=== PATIENT | male | born 1945 ===

== ENCOUNTER 2017-12-22 20:32 | Emergency (ER) | payer OTHER, MEDICARE, MEDICAID ==
[2017-12-22 20:32] VITALS: BMI 29.9
[2017-12-22 20:36] VITALS: BP 165/93; PULSE 88; RESP 16; TEMP 98.7; O2SAT 96
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
--- NOTE | 2017-12-23 13:41 | RAD ---
PROCEDURE: Left Knee Radiographs. HISTORY: Pain. COMPARISON: None. FINDINGS: BONES: Normal. No fracture. JOINTS: Normal. No osteoarthritis. JOINT EFFUSION: Trace effusion noted common nonspecific. OTHER FINDINGS: None. IMPRESSION: Unremarkable examination.
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
== END 2017-12-23 00:28 | disposition home or self-care (01) ==
LOC: H.ER 20:32
DX: S09.90XA Unspecified injury of head, initial encounter (principal); S89.92XA Unspecified injury of left lower leg, initial encounter; T07.XXXA Unspecified multiple injuries, initial encounter; V03.10XA Pedestrian on foot injured in collision with car, pick-up truck or van in traffic accident, initial encounter; Y92.410 Unspecified street and highway as the place of occurrence of the external cause; E11.9 Type 2 diabetes mellitus without complications; I10 Essential (primary) hypertension; Z86.73 Personal history of transient ischemic attack (TIA), and cerebral infarction without residual deficits